=== PATIENT | female | born 1950 | race African-American/Black ===

== ENCOUNTER 2019-01-19 08:20 | Day surgery (SDC) | payer MEDICARE, OTHER ==
[2019-01-18 14:59] VITALS: BMI 26.9
--- NOTE | 2019-01-19 07:17 | HP ---
HISTORY OF PRESENT ILLNESS: Talia Rangel is a 68-year-old white female, , who has symptomatic cholelithiasis. Ultrasound at [facility] on 01/01/2019 reveals gallstones, normal bile duct caliber. CAT scan of the abdomen and pelvis on 01/11/2019 is unremarkable except for mild constipation. She is seen in [facility] in 06/2018, where she had an EKG, that was normal. She had laboratories with CBC and comprehensive metabolic profile that were normal. Lipase was normal. Troponins were normal. Plan is for laparoscopic video cholecystectomy. Risks of infection, bleeding, reoperation explained. She consents. She had a colonoscopy 5 years ago, that was normal. She is referred by Dr. Salvador. The patient works in [employer] and wants to have this done as soon as possible to convalesce return to her job soon. PAST MEDICAL HISTORY: 1. Hypertension. 2. Diabetes. PAST SURGICAL HISTORY: 1. Total abdominal hysterectomy. 2. Bilateral salpingo-oophorectomy. 3. Colonoscopy is up to date. REVIEW OF SYSTEMS: Ten-point noncontributory. PHYSICAL EXAMINATION: VITAL SIGNS: Weight 188 pounds, height 5 feet 10 inches, blood pressure 147/65, heart rate 71, and temperature 96.4 degrees. HEAD, EARS, EYES, NOSE AND THROAT: Unremarkable. LUNGS: Clear to auscultation. CARDIAC: Regular rhythm without murmur or gallop. ABDOMEN: Soft and nontender. No mass. EXTREMITIES: Unremarkable. ASSESSMENT AND PLAN: Symptomatic cholelithiasis and cholecystitis, chronic. PLAN: Laparoscopic video cholecystectomy. Risks of infection, bleeding, visceral and biliary injury discussed. Questions answered. Job ID: [id number]
[2019-01-19] MEDS ORDERED: Ketorolac Tromethamine 30 MG/ML VIAL ONE (08:47)
[2019-01-19] MEDS ORDERED: Bupivacaine HCl 0.5%/Epinephrine 1:200,000/PF 30 ml Vial ONE (09:33)
[2019-01-19] MEDS ORDERED: Fentanyl 100 MCG/2 ML VIAL ONE (09:35)
[2019-01-19] MEDS ORDERED: Lidocaine 2% Jelly 5 ML TUBE ONE (09:35)
[2019-01-19] MEDS ORDERED: hydrALAZINE 20 MG/ML VIAL ONE (10:55)
[2019-01-19] MEDS ORDERED: HYDROcodone/Acetaminophen 5/325 mg Tablet ONE (11:43)
[2019-01-19] MEDS ORDERED: Promethazine HCl 25 MG/ML VIAL ONE (12:54)
[2019-01-19] MEDS ORDERED: Sodium Chloride 0.9% 10 ML ONE (12:54)
--- NOTE | 2019-01-19 16:19 | OP ---
DATE OF PROCEDURE: 01/19/2019 PREOPERATIVE DIAGNOSES: Chronic cholecystitis and cholelithiasis. POSTOPERATIVE DIAGNOSES: Chronic cholecystitis and cholelithiasis. PROCEDURE PERFORMED: Laparoscopic video cholecystectomy. ANESTHESIA: General, local 0.5% Marcaine with epinephrine 30 mL. DESCRIPTION OF PROCEDURE: The patient was taken to the operating room, where under general anesthesia, abdomen was prepared with ChloraPrep and draped in routine fashion. Local anesthetic 0.5% Marcaine with epinephrine was infiltrated in the skin and subcutaneous tissue at each port site. Total volume used. Infraumbilical incision was made. Pneumoperitoneum to 15 mmHg was obtained with a Veress needle, replaced with a 5 port, video laparoscope inserted. Right subxiphoid incision was made and 11-port placed. Right subcostal incision was made at midclavicular and anterior axillary lines. The 5 port was placed. There were numerous adhesions between the liver and anterior abdominal wall, taken down sharply. Fundus of the gallbladder was grasped at the cephalad, infundibulum grasped and reflected laterally. Cystic artery and duct dissected free, critical view obtained. Cystic artery and duct doubly clipped proximally and divided and gallbladder dissected free from liver bed obtaining good hemostasis prior to division of the final peritoneal attachments. Gallbladder and contents, large stone removed, submitted to Pathology. Good hemostasis was ensured with the cautery. Irrigant and pneumoperitoneum evacuated after subxiphoid fascia approximated with a GraNee needle 0 Vicryl due to bleeding from the port site. This controlled the bleeding. All skin incisions were closed with interrupted subdermal 4-0 Monocryl and Sarben glue applied. Job ID: [id number]
== END 2019-01-19 14:15 | disposition home or self-care (01) ==
LOC: SDC 08:20
PROVIDERS: ATTEND Specialist
PROC: 0FT44ZZ Resection of Gallbladder, Percutaneous Endoscopic Approach (ICD-10-PCS; principal; 2019-01-19)
DX: K80.10 Calculus of gallbladder with chronic cholecystitis without obstruction (principal); I10 Essential (primary) hypertension; E11.9 Type 2 diabetes mellitus without complications; Z79.1 Long term (current) use of non-steroidal anti-inflammatories (NSAID); Z79.82 Long term (current) use of aspirin; Z79.84 Long term (current) use of oral hypoglycemic drugs; Z79.899 Other long term (current) drug therapy
CPT/HCPCS: 88304; J0131; J0360; J0670; J0690; J1885; J2550; J3010

== ENCOUNTER 2021-03-09 10:54 | Emergency (ER) | payer MEDICARE, OTHER ==
[2021-03-09 12:18] LABS: #Basophils 0.1 thou/uL (0.0-0.2); #Eosinphils 0.1 thou/uL (0.0-0.7); #Lymphocytes 4.4 thou/uL (1.20-3.40); #Monocytes 1.1 thou/uL (0.11-0.59); %Basophils 0.7 % (0.0-1.0); %Eosinophils 0.6 % (0.0-10.0); %Lymphocytes 34.8 % (21.0-51.0); %Monocytes 8.4 % (0.0-10.0); %Neutrophils 55.5 % (42.0-75.0); Mean Corpuscular HGB CONC 32.9 g/dL (32.0-36.0); Mean Corpuscular Hemoglobin 31.3 pg (27.0-31.0); Mean Corpuscular Volume 95.2 fL (78.0-98.0); Mean Platelet Volume 6.6 fL (7.4-10.4); Platelet Count 307 thou/uL (130-400); RBC Distribution Width 12.3 % (11.5-14.5); White Blood Cell (WBC) Count 12.6 thou/uL (4.8-10.8)
[2021-03-09 12:40] LABS: ALT (SGPT) 31 U/L (8-55); AST (SGOT) 24 U/L (5-34); Albumin 4.3 g/dL (3.4-4.8); Alkaline Phosphatase 95 U/L (40-110); Anion Gap 16 mmol/L (10-20); BUN (Urea Nitrogen) 39 mg/dL (9.8-20.1); Bilirubin, Total 1.3 mg/dL (0.2-1.2); Calc. Creatinine Clearance 0 mL/min (70-130); Calcium 11.3 mg/dL (7.8-10.44); Carbon Dioxide 27 mmol/L (23-31); Chloride 100 mmol/L (98-107); Globulin 3.7 g/dL (2.4-3.5); Glucose 164 mg/dL (80-115); Potassium 4.1 mmol/L (3.5-5.1); Sodium 139 mmol/L (136-145)
[2021-03-09 16:25] LABS: Bacteria/HPF None Seen HPF (None Seen); Bilirubin 1+ (Negative); Blood, Urine Negative (Negative); Clarity Turbid (Clear); Glucose, Urine (Dipstick) Normal (Negative); Ketone, Urine 40 mg/dL (Negative); Leukocyte Negative Leu/uL (Negative); Nitrite Negative (Negative); Protein, Urine (Dipstick) 30 mg/dL (Neg-Trace); RBC/HPF 0-3 HPF (0-3); Specific Gravity, Urine 1.032 (1.002-1.036); WBC/HPF 0-3 HPF (0-3); pH, Urine 5.5 (5.0-9.0)
[2021-03-09] MEDS ORDERED: Ondansetron PF 4 MG/2 ML Vial ONE (16:42)
== END 2021-03-09 18:10 | disposition home or self-care (01) ==
LOC: ERS 10:54
DX: R19.7 Diarrhea, unspecified (principal); E11.9 Type 2 diabetes mellitus without complications; I10 Essential (primary) hypertension; E78.00 Pure hypercholesterolemia, unspecified; F17.210 Nicotine dependence, cigarettes, uncomplicated
CPT/HCPCS: 36415; 80053; 81003; 81015; 85025; 96374; J2405

== ENCOUNTER 2022-07-29 10:31 | Outpatient (CLI) | payer MEDICARE, OTHER | END 2022-07-29 10:32 | disposition home or self-care (01) | LOC: BICMAMMO 10:31 | PROVIDERS: ATTEND Internal Medicine | DX: Z12.31 Encounter for screening mammogram for malignant neoplasm of breast (principal) | CPT/HCPCS: 77063; 77067 ==

== ENCOUNTER 2022-09-28 10:35 | Outpatient (CLI) | payer MEDICARE, OTHER | END 2022-09-28 10:36 | disposition home or self-care (01) | LOC: BICRAD 10:35 | PROVIDERS: ATTEND Internal Medicine | DX: Z12.2 Encounter for screening for malignant neoplasm of respiratory organs (principal); R63.4 Abnormal weight loss; F17.210 Nicotine dependence, cigarettes, uncomplicated | CPT/HCPCS: 71046 ==

== ENCOUNTER 2023-09-27 13:45 | Outpatient (CLI) | payer MEDICARE, OTHER | END 2023-09-27 13:46 | disposition home or self-care (01) | LOC: MRI 13:45 | PROVIDERS: ATTEND Family Medicine Sports Medicine | DX: M47.26 Other spondylosis with radiculopathy, lumbar region (principal); M51.16 Intervertebral disc disorders with radiculopathy, lumbar region | CPT/HCPCS: 72148 ==

== ENCOUNTER 2024-02-07 13:26 | Outpatient (CLI) | payer MEDICARE, OTHER | END 2024-02-07 13:27 | disposition home or self-care (01) | LOC: BICMAMMO 13:26 | PROVIDERS: ATTEND Nurse Practitioner | DX: N63.20 Unspecified lump in the left breast, unspecified quadrant (principal); R92.332 Mammographic heterogeneous density, left breast; R92.1 Mammographic calcification found on diagnostic imaging of breast | CPT/HCPCS: 76642; 77066; G0279 ==